=== PATIENT | female | born 1970 | race Caucasian/White ===

== ENCOUNTER → 2018-06-22 | Outpatient (CLI) | payer BC | LOC: RAD 16:49 | DX: R10.2 Pelvic and perineal pain (principal); M25.551 Pain in right hip; R10.9 Unspecified abdominal pain ==

== ENCOUNTER → 2018-06-27 | Outpatient (CLI) | payer BC | LOC: RAD 10:00 | DX: Z01.419 Encounter for gynecological examination (general) (routine) without abnormal findings (principal); R10.9 Unspecified abdominal pain; K59.00 Constipation, unspecified; R30.0 Dysuria ==

== ENCOUNTER → 2023-11-06 | Outpatient (CLI) | payer BC | LOC: MAMMO 06:59 | DX: R92.0 Mammographic microcalcification found on diagnostic imaging of breast (principal) ==